=== PATIENT | female | born 1960 | race Caucasian/White ===

== ENCOUNTER 2016-08-03 08:25 | Emergency (ER) | payer BC ==
[2016-08-03 09:07] LABS: BASOPHILS 0.2 % (0.0-2.0); EOSINOPHILS 0.4 % (0-7); HEMATOCRIT 39.4 % (36.0-48.0); HEMOGLOBIN 13.5 g/dL (12-16); IMMATURE GRANULOCYTES 0.2 % (0-5); MCH 30.3 pg (26.0-34.0); MCHC 34.3 g/dL (31.0-37.0); MCV 88.3 fL (80.0-100.0); MEAN PLATELET VOLUME 9.7 fL (7.4-10.4); MONOCYTES 7.2 % (2-11); PLATELET COUNT 316 10x3/uL (130-400); RBC 4.46 10x6/uL (4.00-5.40); RDW 12.2 % (11.5-14.5); WBC 11.9 10x3/uL (4.8-10.8)
== END 2016-08-03 10:42 | disposition home or self-care (01) ==
LOC: D.ER 08:25
PROVIDERS: Emergency Medicine
DX: J06.9 Acute upper respiratory infection, unspecified (principal)